=== PATIENT | male | born 1995 | race Caucasian/White ===

== ENCOUNTER 2016-10-04 12:20 | Emergency (ER) | payer SELFPAY ==
[~2016-10-04 12:20] MED LIST: ADDERALL 15 MG15 MG PO; ADDERALL PO; FLOMAX0.4 MG PO; LEXAPRO20 MG PO; NORCO 5/325 TAB1 TAB PO; VOLTAREN75 MG PO
[2016-10-04] MEDS ORDERED: CLARITIN10 M6 PO (12:31)
[2016-10-04 13:02] LABS: URINE BILIRUBIN NEGATIVE (NEG); URINE BLOOD LARGE (NEG); URINE GLUCOSE (UA) NEGATIVE (NEG); URINE KETONE NEGATIVE (NEG); URINE LEUKOCYTE ESTERASE NEGATIVE (NEG); URINE NITRITE NEGATIVE (NEG); URINE PROTEIN MODERATE (NEG); URINE SPECIFIC GRAVITY 1.025 (1.003-1.030)
[2016-10-04 13:06] LABS: URINE APPEARANCE HAZY; URINE COLOR DARK YELLOW
[2016-10-04 13:13] LABS: CREATININE 1.07 mg/dl (0.60-1.30); eGFR VALUE FOR BLACK >90 mL/Min
[2016-10-04 13:14] LABS: URINE MUCUS 1+
[2016-10-04 13:15] LABS: URINE RBC 200-250 /[HPF] (0-5)
[2016-10-04 13:16] LABS: URINE WBC 0-2 /[HPF] (0-5)
[2016-10-04] MEDS ORDERED: FLOMAX0.4 M1 PO (14:02)
[2016-10-04] MEDS ORDERED: ZOFRAN4 M2 PO (14:02)
[2016-10-04] MEDS ORDERED: PERCOCET 5-3251 EACH PO (14:02)
== END 2016-10-04 15:05 ==
LOC: EDMED 12:20
PROVIDERS: Emergency Medicine
DX: N13.2 Hydronephrosis with renal and ureteral calculous obstruction (principal); E66.9 Obesity, unspecified; Z87.442 Personal history of urinary calculi
CPT/HCPCS: J1885; J2270; J2405; J7030

== ENCOUNTER → 2016-10-06 | Emergency (ER) | payer SELFPAY ==
[~2016-10-06] MED LIST changes: +CLARITIN10 M6 PO; +FLOMAX0.4 M1 PO; +PERCOCET 5-3251 EACH PO; +ZOFRAN4 M2 PO
== END | disposition left against medical advice (07) ==
LOC: EDMED 22:49
DX: Z53.21 Procedure and treatment not carried out due to patient leaving prior to being seen by health care provider (principal)